=== PATIENT | female | born 2005 | race Hispanic/Latino ===

== ENCOUNTER 2024-09-28 19:10 | Emergency (ER) | payer OTHER | END 2024-09-28 19:45 | disposition home or self-care (01) | LOC: CSHERS 19:10 | DX: S60.562A Insect bite (nonvenomous) of left hand, initial encounter (principal); W57.XXXA Bitten or stung by nonvenomous insect and other nonvenomous arthropods, initial encounter | CPT/HCPCS: 99281 ==